=== PATIENT | female | born 1970 | race American Indian/Alaskan Native ===

== ENCOUNTER 2017-03-08 12:32 | Emergency (ER) | payer OTHER ==
[2017-03-08 12:51] VITALS: BMI 29.3
[2017-03-08 12:53] VITALS: TEMP 98.4
--- NOTE | 2017-03-08 13:04 | ED PDOC ---
Arrival/HPI - General Historian: Patient - History of Present Illness Time/Duration: > month Symptom Onset: Gradual Symptom Course: Intermittent Quality: Burning Severity Level: 7 - General Chief Complaint: Abdominal Pain Time Seen by Provider: 03/08/17 13:03 - History of Present Illness Narrative History of Present Illness (Text): 46 F with pmh of Gerd, hiatal hernia, HTN, s/p ventral hernia presents to ED for complaint of abdominal pain. Patient states this pain has been intermittent for past 2 months. She states that she has had similar pain in the past but not sure what is causing it. 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 She states pain is moderate. She describes it as intermittent burning pain in epigastric region without radiation. Food makes it worse sometimes while nothing makes it better. (Ye Sarah) Past Medical History - Provider Review Nursing Documentation Reviewed: Yes - Travel History Have you recently traveled outside [place] w/in the past 3 mons?: No - Infectious Disease Hx of Infectious Diseases: None - Reproductive Menopause: Yes - Cardiac Hx Cardiac Disorders: Yes Hx Hypertension: Yes - Pulmonary Hx Respiratory Disorders: No - Neurological Hx Neurological Disorder: No - HEENT Hx HEENT Disorder: No - Renal Hx Renal Disorder: No - Endocrine/Metabolic Hx Endocrine Disorders: No - Hematological/Oncological Hx Blood Disorders: No - Integumentary Hx Dermatological Disorder: No - Musculoskeletal/Rheumatological Hx Musculoskeletal Disorders: No - Gastrointestinal Hx Gastrointestinal Disorders: Yes Hx Gastroesophageal Reflux: Yes Other/Comment: Hernia - Genitourinary/Gynecological Hx Genitourinary Disorders: No Other/Comment: Ovarian cyst - Psychiatric Hx Psychophysiologic Disorder: No Hx Substance Use: No - Surgical History Other/Comment: Hernia Surgery - Anesthesia Hx Anesthesia: Yes Hx Anesthesia Reactions: No Hx Malignant Hyperthermia: No Family/Social History - Physician Review Nursing Documentation Reviewed: Yes Family/Social History: Unknown Family HX Smoking Status: Former Smoker Hx Alcohol Use: No Hx Substance Use: No Allergies/Home Meds Allergies/Adverse Reactions: Allergies No Known Allergies Allergy (Verified 06/21/16 15:14) Home Medications: Home Meds Medication Instructions Recorded Confirmed Home Med [Home Med] 1 tab PO DAILY 03/08/17 03/08/17 Home Med [Home Med] 1 tab PO DAILY 03/08/17 03/08/17 Review of Systems - Review of Systems Constitutional: absent: Fatigue, Weight Change, Fevers, Night Sweats Eyes: absent: Vision Changes, Photophobia, Eye Pain ENT: absent: Hearing Changes, Tinnitus, TMJ Pain, Rhinorrhea, Sinus Congestion Respiratory: absent: SOB, Cough, Sputum, Wheezing Cardiovascular: absent: Chest Pain, Palpitations, Edema, Syncope Gastrointestinal: Abdominal Pain. absent: Constipation, Diarrhea, Nausea, Vomiting, Appetite Changes, Hematochezia, Hematemesis, Food Intolerance Genitourinary Female: absent: Dysuria, Frequency, Hematuria Musculoskeletal: absent: Arthralgias, Back Pain, Neck Pain, Joint Swelling, Myalgias Skin: absent: Rash, Skin Lesions Neurological: absent: Headache, Dizziness, Focal Weakness Endocrine: absent: Diaphoresis, Polyuria, Polydipsia, Other Hemo/Lymphatic: absent: Adenopathy, Easy Bleeding, Easy Bruising Psychiatric: absent: Anxiety, Depression, Suicidal Ideation Physical Exam Vital Signs Reviewed: Yes Temperature: Afebrile Blood Pressure: Normal Pulse: Regular Respiratory Rate: Normal Appearance: Positive for: Well-Appearing, Non-Toxic, Comfortable Pain Distress: Mild Mental Status: Positive for: Alert and Oriented X 3 - Systems Exam Head: Present: Atraumatic, Normocephalic Pupils: Present: PERRL Extroacular Muscles: Present: EOMI Conjunctiva: Present: Normal Mouth: Present: Moist Mucous Membranes Neck: Present: Normal Range of Motion, Trachea Midline Respiratory/Chest: Present: Clear to Auscultation, Good Air Exchange Cardiovascular: Present: Regular Rate and Rhythm, Normal S1, S2, Peripheal Pulses Present Abdomen: Present: Tenderness (epigastric), Normal Bowel Sounds. No: Distention , Peritoneal Signs, Rebound, Guarding Back: No: CVA Tenderness Upper Extremity: Present: Normal ROM, NORMAL PULSES, Neurovascularly Intact, Capillary Refill < 2s Lower Extremity: Present: NORMAL PULSES, Normal ROM, Neurovascularly Intact, Capillary Refill < 2 s Neurological: Present: GCS=15, CN II-XII Intact, Speech Normal, Motor Func Grossly Intact, Normal Sensory Function Skin: Present: Warm, Dry, Normal Color Lymphatic: No: Cervical Adenopathy, Axillary Adenopathy, Inguinal Adenopathy Psychiatric: Present: Alert, Oriented x 3 Vital Signs Temp Pulse Resp BP Pulse Ox 03/08/17 16:46 80 16 126/72 98 03/08/17 12:53 98.4 F 79 18 121/80 95 Medical Decision Making ED Course and Treatment: CBC, CMP, EKG, AB US Pepcid AB US and labs reviewed all labs and imaging were unremarkable Patient is feeling better. Medically stable for discharge. Abdomen soft, nontender, BS present, no guarding or rebound (Imbrescia,Ye) Patient seen and examined with resident. Came up with treatment and disposition plan with resident. 46yo female with epigastric pain and tenderness to palpation. states she has had this discomfort in the past. states pain is non-exertional and she has no cp /sob/lerma. States pain is worst with food. states she can f/u with GI on dc pt's abd is soft/nt/nd and she is tolerating PO without difficulty (Yusuf Sunshine) - Lab Interpretations Lab Results: 03/08/17 15:30 03/08/17 15:30 Lab Results 03/08/17 15:30: Sodium 136, Potassium 3.5 L, Chloride 100, Carbon Dioxide 26, Anion Gap 14, BUN 14, Creatinine 0.8, Est GFR ( Amer) > 60, Est GFR (Non- Af Amer) > 60, Random Glucose 82, Calcium 8.9, Total Bilirubin 0.3, AST 36, ALT 41, Alkaline Phosphatase 53, Total Protein 7.7, Albumin 4.0, Globulin 3.6, Albumin/Globulin Ratio 1.1 03/08/17 15:30: WBC 5.8 D, RBC 4.26, Hgb 11.8 L, Hct 34.8 L, MCV 81.7, MCH 27.7 , MCHC 33.9, RDW 14.5, Plt Count 225, MPV 9.3, Gran % 51.7, Lymph % (Auto) 40.8 H, [place] % (Auto) 5.4, Eos % (Auto) 1.6, Baso % (Auto) 0.5, Gran # 3.00, Lymph # 2.4, [place] # 0.3, Eos # 0.1, Baso # 0.03 03/08/17 14:00: Urine Color Yellow, Urine Appearance Clear, Urine pH 6.0, Ur Specific [place] 1.020, Urine Protein Negative, Urine Glucose (UA) Negative, Urine Ketones Negative, Urine Blood Negative, Urine Nitrate Negative, Urine Bilirubin Negative, Urine Urobilinogen 0.2, Ur Leukocyte Esterase Negative - RAD Interpretation Radiology Orders: 03/08/17 13:31 ABDOMEN COMPLETE [US] Stat - Medication Orders Current Medication Orders: Discontinued Medications Famotidine (Pepcid) 20 mg IVP STAT STA Stop: 03/08/17 13:32 Last Admin: 03/08/17 15:33 Dose: 20 mg Disposition/Present on Arrival - Present on Arrival Any Indicators Present on Arrival: No History of DVT/PE: No History of Uncontrolled Diabetes: No Urinary Catheter: No History of Decub. Ulcer: No History Surgical Site Infection Following: None - Disposition Have Diagnosis and Disposition been Completed?: Yes Disposition Time: 04:20 Patient Plan: Discharge - Disposition Diagnosis: Abdominal pain Disposition: HOME/ ROUTINE Condition: GOOD Discharge Instructions (ExitCare): Abdominal Pain (ED) Additional Instructions: Thank you for letting us take care of you today. Your provider was Dr. Sarah. You were treated for Abdominal pain. The emergency medical care you received today was directed at your acute symptoms. If you were prescribed any medication, please fill it and take as directed. It may take several days for your symptoms to resolve. Return to the Emergency Department if your symptoms worsen, do not improve, or if you have any other problems. Please contact your doctor or call one of the physicians/clinics you have been referred to that are listed on the Patient Visit Information form that is included in your discharge packet. Bring any paperwork you were given at discharge with you along with any medications you are taking to your follow up visit. Our treatment cannot replace ongoing medical care by a primary care provider (PCP) outside of the emergency department. Thank you for allowing the [facility] team to be part of your care today. If you had an X-Ray or CT scan: A Radiologist will review the ED reading if any change in treatment is needed we will contact you. If you had a blood, urine, or wound culture: It will take several days for the results, if any change in treatment is needed we will contact you. If you had an STI test: It will take 48 hours for the results. Please call after 1 week if you have not heard back. Take Zantac as prescribed Follow up with PMD within 2-3 days Follow up with Gastroenterology Please return to ED if symptoms persist or condition worsens Prescriptions: Ranitidine HCl 150 mg PO BID #60 tab Referrals: Leeanna Jones MD [Primary Care Provider] - Follow up with primary Josh English MD [Staff Provider] - Follow up with primary Ryan Solorzano MD [Medical Doctor] - Follow up with primary Wei Junior DO [Staff Provider] - Follow up with primary
[2017-03-08 14:18] LABS: URINE BILIRUBIN NEGATIVE (NEGATIVE); URINE BLOOD NEGATIVE (NEGATIVE); URINE GLUCOSE (UA) NEGATIVE (NEGATIVE); URINE LEUKOCYTE ESTERASE NEGATIVE Leu/uL (NEGATIVE); URINE NITRATE NEGATIVE (NEGATIVE); URINE PROTEIN NEGATIVE mg/dL (<30 mg/dL); URINE UROBILINOGEN 0.2 E.U./dL (<1 E.U./dL)
[2017-03-08 14:27] LABS: URINE APPEARANCE CLEAR (CLEAR); URINE COLOR YELLOW (YELLOW)
--- NOTE | 2017-03-08 14:50 | US ---
HISTORY: Epigastric pain COMPARISON: None. TECHNIQUE: Grayscale imaging was performed. FINDINGS: LIVER: Measures 17.3 cm. Normal echogenicity of the liver parenchyma. No mass. No intrahepatic bile duct dilatation. GALLBLADDER: Unremarkable. No gallstones. COMMON BILE DUCT: Measures 2.6 mm. No stones. No dilatation. PANCREAS: Unremarkable as visualized. No mass. No ductal dilatation. RIGHT KIDNEY: Measures 9.3cm. Normal echogenicity. No calculus, mass, or hydronephrosis. LEFT KIDNEY: Measures 10.2cm. Normal echogenicity. No calculus, mass, or hydronephrosis. SPLEEN: Normal in size and contour. No mass. AORTA: No aneurysmal dilatation. IVC: Unremarkable. OTHER FINDINGS: None. IMPRESSION: No evidence of cholelithiasis or biliary dilatation.
[2017-03-08 15:41] LABS: BASO # 0.03 K/mm3 (0.0-2.0); BASO % 0.5 % (0.0-3.0); EOS # 0.1 (0.0-0.7); EOS % 1.6 % (1.5-5.0); GRAN % 51.7 % (50.0-68.0); HEMOGLOBIN 11.8 gm/dL (12.0-16.0); LYMPH # 2.4 (1.2-3.4); LYMPH % 40.8 % (22.0-35.0); MEAN CELL VOLUME 81.7 fL (80.0-105.0); MEAN CORPUSCULAR HEMOGLOBIN 27.7 pg (25.0-35.0); MEAN CORPUSCULAR HGB CONC 33.9 g/dl (31.0-37.0); MEAN PLATELET VOLUME 9.3 fl (7.0-11.0); MONO # 0.3 (0.1-0.6); MONO % 5.4 % (1.0-6.0); PLATELET COUNT 225 10^3/uL (120.0-450.0); RBC 4.26 10^6/uL (3.5-6.1); RED CELL DISTRIBUTION WIDTH 14.5 % (11.5-14.5); WHITE BLOOD COUNT 5.8 10^3/ul (4.5-11.0)
[2017-03-08 15:57] LABS: ALB/GLOB RATIO 1.1 (1.1-1.8); ALT/SGPT 41 U/L (7-56); AST/SGOT 36 U/L (15-39); BLOOD UREA NITROGEN 14 mg/dL (7-21); CALCIUM 8.9 mg/dL (8.4-10.5); GFR AFRICAN-AMERICAN > 60; GFR NON-AFRICAN AMERICAN > 60
[2017-03-08 16:51] VITALS: BP 126/72; PULSE 80; RESP 16; O2SAT 98
== END 2017-03-08 16:46 | disposition home or self-care (01) ==
LOC: ED 12:32
DX: R10.9 Unspecified abdominal pain (principal); Z87.891 Personal history of nicotine dependence; I10 Essential (primary) hypertension

== ENCOUNTER 2018-03-06 15:04 | Emergency (ER) | payer MEDICAID, OTHER ==
[2018-03-06 15:04] VITALS: BMI 29.3
--- NOTE | 2018-03-06 15:41 | ED PDOC ---
Arrival/HPI - General Time Seen by Provider: 03/06/18 15:31 Historian: Patient - History of Present Illness Narrative History of Present Illness (Text): 03/06/18 15:37 47 y/o female, pmh including tendonitis, post menopausal, nkda, c/o rt. ankle pain x 2 weeks s/p injured from hitting against the table. Aching pain, aggravated by walking, no calf or thigh pain, no swelling, no fever or chills, no night sweat, no other medical or psychological complaints. Past Medical History - Provider Review Nursing Documentation Reviewed: Yes - Infectious Disease Hx of Infectious Diseases: None - Cardiac Hx Cardiac Disorders: Yes Hx Hypertension: Yes - Pulmonary Hx Respiratory Disorders: No - Neurological Hx Neurological Disorder: No - HEENT Hx HEENT Disorder: No - Renal Hx Renal Disorder: No - Endocrine/Metabolic Hx Endocrine Disorders: No - Hematological/Oncological Hx Blood Disorders: No - Integumentary Hx Dermatological Disorder: No - Musculoskeletal/Rheumatological Hx Musculoskeletal Disorders: No - Gastrointestinal Hx Gastrointestinal Disorders: Yes Hx Gastroesophageal Reflux: Yes Other/Comment: Hernia - Genitourinary/Gynecological Hx Genitourinary Disorders: No Other/Comment: Ovarian cyst - Psychiatric Hx Psychophysiologic Disorder: No Hx Substance Use: No - Surgical History Other/Comment: Hernia Surgery - Anesthesia Hx Anesthesia: Yes Hx Anesthesia Reactions: No Hx Malignant Hyperthermia: No Family/Social History - Physician Review Nursing Documentation Reviewed: Yes Family/Social History: Unknown Family HX Smoking Status: Former Smoker Hx Alcohol Use: No Hx Substance Use: No Allergies/Home Meds Allergies/Adverse Reactions: Allergies No Known Allergies Allergy (Verified 06/21/16 15:14) Home Medications: Home Meds Medication Instructions Recorded Confirmed Home Med [Home Med] 1 tab PO DAILY 03/08/17 03/08/17 Home Med [Home Med] 1 tab PO DAILY 03/08/17 03/08/17 Review of Systems - Review of Systems Constitutional: absent: Fatigue, Fevers Eyes: absent: Vision Changes ENT: absent: Hearing Changes Respiratory: absent: SOB, Cough Cardiovascular: absent: Chest Pain Gastrointestinal: absent: Abdominal Pain, Nausea, Vomiting Musculoskeletal: Arthralgias, Joint Swelling. absent: Back Pain, Neck Pain, Myalgias Skin: absent: Rash, Pruritis Neurological: absent: Headache, Dizziness Psychiatric: absent: Anxiety, Depression, Suicidal Ideation Physical Exam Vital Signs Temp Pulse Resp BP Pulse Ox 03/06/18 16:18 98.3 F 92 H 18 131/80 98 03/06/18 15:04 97.6 F 88 18 141/79 98 - Systems Exam Head: Present: Atraumatic, Normocephalic Pupils: Present: PERRL Extroacular Muscles: Present: EOMI Conjunctiva: Present: Normal Mouth: Present: Moist Mucous Membranes Neck: Present: Normal Range of Motion Respiratory/Chest: Present: Clear to Auscultation, Good Air Exchange. No: Respiratory Distress, Accessory Muscle Use Cardiovascular: Present: Regular Rate and Rhythm, Normal S1, S2. No: Murmurs Abdomen: No: Tenderness, Distention, Peritoneal Signs Back: Present: Normal Inspection Upper Extremity: Present: Normal Inspection. No: Cyanosis, Edema Lower Extremity: Present: Normal Inspection, Other (Rt. ankle: +ttp on the lateral malleolus with mild swelling, negative karen and lopes signs, FROM without limitation, sensation intact, motor 5/5, ). No: Edema Neurological: Present: GCS=15, CN II-XII Intact, Speech Normal, Motor Func Grossly Intact, Gait Normal, Memory Normal Skin: Present: Warm, Dry, Normal Color. No: Rashes Psychiatric: Present: Alert, Oriented x 3, Normal Insight, Normal Concentration Medical Decision Making ED Course and Treatment: 03/06/18 15:47 Differential: fracture vs. dislocation vs. sprain vs. strain -xray -toradol -Observe and reassess 03/06/18 16:57 -xray show no fracture or dislocation -jennifer wrap, cane as patient refused crutches, pt. request stronger pain med prior to leaving as her pain is improved but not completely gone, percocet ordered. -all radiology result discussed with patient and she awared that she would need to follow up with orthopedic within 2 days. -Discharge home with motrin, jennifer wrap, cane, follow up with your own pmd and orthopedic within 2 days, return to the ER for any new or worsening signs or symptoms. - RAD Interpretation Radiology Orders: 03/06/18 16:04 ANKLE RIGHT 3 VIEWS ROUTINE [RAD] Stat Date of service: 03/06/2018 PROCEDURE: Right Ankle Radiographs. HISTORY: rt. ankle injury and pain COMPARISON: None FINDINGS: BONES: Normal. No fracture. JOINTS: Normal. No osteoarthritis. Ankle mortise maintained. Talar dome intact SOFT TISSUES: Normal. OTHER FINDINGS: None. IMPRESSION: No acute findings related to/accounting for the clinical presentation. 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 No Sleep Is patient sleeping during reassessment? No Presence of Pain Presence of Pain Yes IM Administration Charges Document 03/06/18 16:28 EQ (Rec: 03/06/18 16:28 EQ [email or web address] Charges for Administration # of IM Administrations 1 Oxycodone/Acetaminophen (Percocet 5/325 Mg Tab) 1 tab PO STAT STA Stop: 03/06/18 17:00 Last Admin: 03/06/18 17:32 Dose: 1 tab MAR Pain Assessment Document 03/06/18 17:32 EQ (Rec: 03/06/18 17:33 EQ [id number] Pain Reassessment Is this a pain reassessment? No Sleep Is patient sleeping during reassessment? 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 Disposition/Present on Arrival - Present on Arrival Any Indicators Present on Arrival: No History of DVT/PE: No History of Uncontrolled Diabetes: No Urinary Catheter: No History Surgical Site Infection Following: None - Disposition Have Diagnosis and Disposition been Completed?: Yes Diagnosis: Ankle pain Disposition: HOME/ ROUTINE Disposition Time: 15:48 Patient Plan: Discharge Patient Problems: Current Active Problems Problem Status Onset Ankle pain Acute Condition: GOOD Additional Instructions: -Discharge home with motrin, jennifer wrap, cane, follow up with your own pmd and orthopedic within 2 days, return to the ER for any new or worsening signs or symptoms. Prescriptions: Ibuprofen [Motrin Tab] 600 mg PO QID PRN #30 tab PRN Reason: Other Referrals: Leeanna Jones MD [Primary Care Provider] - Follow up with primary Forms: WORK NOTE
[2018-03-06 16:00] VITALS: RESP 18; O2SAT 98
[2018-03-06 16:20] VITALS: TEMP 98.3
[2018-03-06] MEDS ORDERED: Oxycodone/Acetaminophen 5/325 mg Tab PO STA (16:59)
--- NOTE | 2018-03-06 17:34 | RAD ---
Date of service: 03/06/2018 PROCEDURE: Right Ankle Radiographs. HISTORY: rt. ankle injury and pain COMPARISON: None FINDINGS: BONES: Normal. No fracture. JOINTS: Normal. No osteoarthritis. Ankle mortise maintained. Talar dome intact SOFT TISSUES: Normal. OTHER FINDINGS: None. IMPRESSION: No acute findings related to/accounting for the clinical presentation. Concordant results with the preliminary interpretation rendered by the emergency department physician procedure.
[2018-03-06 17:44] VITALS: BP 134/76; PULSE 83
== END 2018-03-06 17:43 | disposition home or self-care (01) ==
LOC: ED 15:04
DX: M25.571 Pain in right ankle and joints of right foot (principal); I10 Essential (primary) hypertension; Z87.891 Personal history of nicotine dependence
CPT/HCPCS: 73610; 96372; 99284; J1885

== ENCOUNTER 2018-11-17 14:50 | Inpatient (IN) | payer MEDICAID ==
[2018-11-17 15:01] VITALS: BMI 25.7
[2018-11-17 15:53] LABS: BASO # 0.02 K/mm3 (0.0-2.0); BASO % 0.1 % (0.0-3.0); EOS % 0.1 % (1.5-5.0); HEMOGLOBIN 12.3 g/dL (12.0-16.0); LYMPH # 1.7 (1.2-3.4); LYMPH % 9.9 % (22.0-35.0); MEAN CELL VOLUME 83.5 fl (80.0-105.0); MEAN CORPUSCULAR HEMOGLOBIN 27.5 pg (25.0-35.0); MEAN CORPUSCULAR HGB CONC 32.9 g/dl (31.0-37.0); MEAN PLATELET VOLUME 9.5 fl (7.0-11.0); MONO # 1.3 (0.1-0.6); MONO % 7.7 % (1.0-6.0); RBC 4.48 10^6/uL (3.5-6.1); WHITE BLOOD COUNT 17.1 10^3/uL (4.5-11.0)
[2018-11-17] MEDS ORDERED: Sodium Chloride 0.9% 1,000 ML IV STA (15:56)
[2018-11-17 15:59] LABS: ALB/GLOB RATIO 0.9 (1.1-1.8); ALBUMIN 3.9 g/dL (3.0-4.8); ALT/SGPT 17 U/L (7-56); AST/SGOT 33 U/L (14-36); BLOOD UREA NITROGEN 11 mg/dL (7-21); CALCIUM 9.3 mg/dL (8.4-10.5); GFR NON-AFRICAN AMERICAN > 60; LIPASE 40 U/L (23-300)
--- NOTE | 2018-11-17 16:02 | ED PDOC ---
Arrival/HPI - General Chief Complaint: Abdominal Pain Time Seen by Provider: 11/17/18 15:00 Historian: Patient - History of Present Illness Narrative History of Present Illness (Text): 11/17/18 15:58 48 year old post-menopausal female, whose past medical history includes tendonitis, presents to the ED for abdominal pain for the past week. Patient reports associated headache, fever, nausea, vomiting and diarrhea. Patient notes a past surgical history of hernia and bladder lift surgeries. Patient denies any chest pain, shortness of breath, dyspnea on exertion, cough, back pain, neck pain, vaginal bleeding, hematuria, dysuria, urinary/bowel changes, or any other complaint. Time/Duration: 1 week Symptom Onset: Gradual Symptom Course: Unchanged Activities at Onset: Light Context: Home Past Medical History - Provider Review Nursing Documentation Reviewed: Yes - Infectious Disease Hx of Infectious Diseases: None - Cardiac Hx Cardiac Disorders: Yes Hx Hypertension: Yes - Pulmonary Hx Respiratory Disorders: No - Neurological Hx Neurological Disorder: No - HEENT Hx HEENT Disorder: No - Renal Hx Renal Disorder: No - Endocrine/Metabolic Hx Endocrine Disorders: No - Hematological/Oncological Hx Blood Disorders: No - Integumentary Hx Dermatological Disorder: No - Musculoskeletal/Rheumatological Hx Musculoskeletal Disorders: No - Gastrointestinal Hx Gastrointestinal Disorders: Yes Hx Gastroesophageal Reflux: Yes Other/Comment: Hernia - Genitourinary/Gynecological Hx Genitourinary Disorders: No Other/Comment: Ovarian cyst - Psychiatric Hx Psychophysiologic Disorder: No Hx Substance Use: No - Surgical History Other/Comment: Hernia Surgery - Anesthesia Hx Anesthesia: Yes Hx Anesthesia Reactions: No Hx Malignant Hyperthermia: No Family/Social History - Physician Review Nursing Documentation Reviewed: Yes Family/Social History: Unknown Family HX Smoking Status: Former Smoker Hx Alcohol Use: No Hx Substance Use: No Allergies/Home Meds Allergies/Adverse Reactions: Allergies No Known Allergies Allergy (Verified 11/17/18 15:01) Home Medications: Home Meds Medication Instructions Recorded Confirmed Home Med 1 tab PO DAILY 03/08/17 03/08/17 Home Med 1 tab PO DAILY 03/08/17 03/08/17 Review of Systems - Physician Review All systems were reviewed & negative as marked: Yes - Review of Systems Constitutional: Fevers Eyes: Normal. absent: Vision Changes ENT: Normal. absent: Hearing Changes, Rhinorrhea Respiratory: absent: SOB, Cough Cardiovascular: absent: Chest Pain Gastrointestinal: Abdominal Pain, Diarrhea, Nausea, Vomiting Genitourinary Female: absent: Dysuria, Hematuria, Vaginal Bleeding Musculoskeletal: absent: Back Pain, Neck Pain Skin: absent: Rash Neurological: Headache Endocrine: absent: Diaphoresis, Polyuria Hemo/Lymphatic: absent: Adenopathy, Easy Bleeding Psychiatric: absent: Anxiety, Depression Physical Exam Vital Signs Reviewed: Yes Vital Signs Temp Pulse Resp BP Pulse Ox 11/17/18 15:07 98.5 F 96 H 18 97/50 L 95 Temperature: Afebrile Blood Pressure: Normal Pulse: Regular Respiratory Rate: Normal Appearance: Positive for: Well-Appearing, Non-Toxic, Comfortable Mental Status: Positive for: Alert and Oriented X 3 - Systems Exam Head: Present: Atraumatic, Normocephalic Pupils: Present: PERRL Extroacular Muscles: Present: EOMI Conjunctiva: Present: Normal Respiratory/Chest: Present: Clear to Auscultation, Good Air Exchange. No: Respiratory Distress, Accessory Muscle Use Abdomen: Present: Tenderness (diffuse abdominal tenderness), Normal Bowel Sounds. No: Rebound, Guarding (no rigidity), Mass/Organomegaly (no palpable organomegaly) Back: No: CVA Tenderness Neurological: Present: Speech Normal Skin: Present: Warm, Dry, Normal Color. No: Rashes Psychiatric: Present: Alert, Oriented x 3, Normal Insight, Normal Concentration Medical Decision Making ED Course and Treatment: 11/17/18 16:07 Impression: 48 year old female who presents to the ED for abdominal pain. Differential Diagnosis included but are not limited to: --Obstruction --Strangulated hernia --Colitis Plan: -- Labs -- Pepcid -- Toradol -- Reglan -- IV Fluids -- Urinalysis --Blood Culture --Ciprofloxacin --Flagyl -- Reassess and disposition Prior Visits: Notes and results from previous visits were reviewed. Progress Notes: 11/17/18 17:56 Labs reviewed with leukocytosis of 17 with shift and hypokalemia to 3.0. CT a/p pending. 11/17/18 18:06 Endorsed clinical case to Dr. Solorzano([facility]) who requests update on CT a/p findings once resulted. 11/17/18 18:28 CT a/p reveals left sided pyelonephritis extending towards the colon. Called Dr. Rashad and updated her on imaging results. She accepts the patient onto her service. PROCEDURE: CT Abdomen and Pelvis with contrast Dictator : Bob Reis MD Report Date : 11/17/2018 17:49:19 IMPRESSION: Inflammatory changes likely originating from the left kidney (focal pyelonephritis). Inflammatory changes extend to the adjacent descending colon. - Lab Interpretations Lab Results: 11/17/18 15:43 11/17/18 15:43 Lab Results 11/17/18 16:50: Urine Color Yellow, Urine Appearance Slight-cloudy, Urine pH 6.0, Ur Specific [place] <= 1.005, Urine Protein Negative, Urine Glucose (UA) Negative, Urine Ketones Negative, Urine Blood Negative, Urine Nitrate Negative, Urine Bilirubin Negative, Urine Urobilinogen 0.2, Ur Leukocyte Esterase Large H, Urine RBC TEST NOT PERFORMED, Urine WBC 10 - 15 H, Ur Epithelial Cells Many H 11/17/18 15:43: Sodium 138, Potassium 3.0 L, Chloride 97 L, Carbon Dioxide 28, Anion Gap 16, BUN 11, Creatinine 0.9, Est GFR ( Amer) > 60, Est GFR (Non- Af Amer) > 60, Random Glucose 98, Calcium 9.3, Magnesium 1.9, Total Bilirubin 0.5, AST 33, ALT 17, Alkaline Phosphatase 55, Troponin I < 0.01, Total Protein 8.2, Albumin 3.9, Globulin 4.3, Albumin/Globulin Ratio 0.9 L, Lipase 40 11/17/18 15:43: PT 13.1 H, INR 1.18, APTT 31.2 11/17/18 15:43: WBC 17.1 H, RBC 4.48, Hgb 12.3, Hct 37.4, MCV 83.5, MCH 27.5, MCHC 32.9, RDW 14.0, Plt Count 296, MPV 9.5, Neut % (Auto) 82.2 H, Lymph % (Auto) 9.9 L, [place] % (Auto) 7.7 H, Eos % (Auto) 0.1 L, Baso % (Auto) 0.1, Lymph # (Auto) 1.7, [place] # (Auto) 1.3 H, Eos # (Auto) 0.0, Baso # (Auto) 0.02, Absolute Neuts (auto) 14.03 H I have reviewed the lab results: Yes - Medication Orders Current Medication Orders: Famotidine (Pepcid) 20 mg IVP STAT STA Stop: 11/17/18 15:57 Sodium Chloride (Sodium Chloride 0.9%) 1,000 mls @ 999 mls/hr IV .Q1H1M STA Stop: 11/17/18 16:56 Metoclopramide HCl (Reglan) 10 mg IVP STAT STA Stop: 11/17/18 15:57 - Scribe Statement The provider has reviewed the documentation as recorded by the Katie Mckenzie Provider Scribe Attestation: All medical record entries made by the Scribe were at my direction and personally dictated by me. I have reviewed the chart and agree that the record accurately reflects my personal performance of the history, physical exam, medical decision making, and the department course for this patient. I have also personally directed, reviewed, and agree with the discharge instructions and disposition. Disposition/Present on Arrival - Present on Arrival Any Indicators Present on Arrival: No History of DVT/PE: No History of Uncontrolled Diabetes: No Urinary Catheter: No History of Decub. Ulcer: No History Surgical Site Infection Following: None - Disposition Have Diagnosis and Disposition been Completed?: No Diagnosis: Pyelonephritis Disposition: HOSPITALIZED Disposition Time: 18:30 Patient Plan: Admission Patient Problems: Current Active Problems Problem Status Onset Pyelonephritis Acute Condition: GUARDED Referrals: Leeanna Jones MD [Primary Care Provider] - Follow up with primary Forms: [employer] (Yoruba)
[2018-11-17 16:06] LABS: INR 1.18; PARTIAL THROMBOPLASTIN TIME 31.2 Seconds (26.9-38.3); PROTHROMBIN TIME 13.1 SECONDS (9.4-12.5)
[2018-11-17 16:09] LABS: TROPONIN I < 0.01 ng/mL
[2018-11-17] MEDS ORDERED: metroNIDAZOLE IV 500 mg/100 ml 500 MG/100 ML BAG IVPB STA (16:13)
[2018-11-17] MEDS ORDERED: Ciprofloxacin 400mg/200ml D5W 400 MG/200 ML BAG IVPB STA (16:13)
[2018-11-17] MEDS ORDERED: Iohexol 350 MG/100 ML VIAL ONE (17:15)
[2018-11-17 17:24] LABS: URINE BILIRUBIN NEGATIVE (NEGATIVE); URINE BLOOD NEGATIVE (NEGATIVE); URINE GLUCOSE (UA) NEGATIVE (NEGATIVE); URINE LEUKOCYTE ESTERASE LARGE Leu/uL (NEGATIVE); URINE PROTEIN NEGATIVE mg/dL (<30 mg/dL); URINE UROBILINOGEN 0.2 E.U./dL (<1 E.U./dL)
[2018-11-17 17:29] LABS: URINE APPEARANCE SLIGHT-CLOUDY (CLEAR); URINE COLOR YELLOW (YELLOW)
[2018-11-17 17:43] LABS: URINE EPITHELIAL CELLS MANY /hpf (0-5)
[2018-11-17] MEDS ORDERED: Potassium Chloride 40 mEq/30 ml LIQ UD PO STA (17:56)
--- NOTE | 2018-11-17 18:15 | CT ---
Date of service: 11/17/2018 PROCEDURE: CT Abdomen and Pelvis with contrast HISTORY: h/o mesh w/ and bladder elevation COMPARISON: 06/21/2016. CT abdomen and pelvis. 03/08/2017 abdominal ultrasound TECHNIQUE: Intravenous contrast dose: 100 cc Omnipaque 300. Radiation dose: Total exam DLP = <inf_radiation_dlp> mGy-cm. This CT exam was performed using one or more of the following dose reduction techniques: Automated exposure control, adjustment of the mA and/or kV according to patient size, and/or use of iterative reconstruction technique. FINDINGS: LOWER THORAX: Unremarkable. LIVER: Unremarkable. No gross lesion or ductal dilatation. GALLBLADDER AND BILE DUCTS: Unremarkable. PANCREAS: Unremarkable. No gross lesion or ductal dilatation. SPLEEN: Unremarkable. ADRENALS: Unremarkable. No mass. KIDNEYS AND URETERS: Left kidney: Abnormal contrast enhancement mid upper pole region. This is a new finding compared to the prior study. This does not appear to represent a mass per se. Likely represents focal pyelonephritis. Inflammatory changes extend to a short segment of the adjacent descending colon. VASCULATURE: Unremarkable. No aortic aneurysm. No atherosclerotic calcification or mural plaque present. BOWEL: Inflammatory changes likely secondary to adjacent pyelonephritis noted in the proximal descending colon. APPENDIX: No abnormalities to suggest acute appendicitis. No right lower quadrant inflammatory processes identified. PERITONEUM: Unremarkable. No free fluid. No free air. LYMPH NODES: Unremarkable. No enlarged lymph nodes. BLADDER: Unremarkable. REPRODUCTIVE: Unremarkable. BONES: No acute fracture. OTHER FINDINGS: None. IMPRESSION: Inflammatory changes likely originating from the left kidney (focal pyelonephritis). Inflammatory changes extend to the adjacent descending colon.
--- NOTE | 2018-11-17 19:27 | CP.PCM.HP ---
<Chad Mccord - Last Filed: 11/17/18 19:59> History of Present Illness - History of Present Illness History of Present Illness: Chad Mccord, PGY1 H&P for Dr. Askew cc: "abdominal pain x1 week" Patient is a 48 year old post-menopausal female, whose past medical history includes GERD, hiatal hernia (with mesh placement), HTN, arthritis, ovarian cyst (with removal) who presented to the ED for x1 week duration. Patient says the pain is left sided. She denies any nausea, vomiting, diarrhea. She describes the pain as sharp and with no radiation. She denies dysuria at this time. However, she endorses urinary frequency and urgency. She had a subjective fever last night. Patient does not notice any blood in her stool or bowel. Patient denies sob, cp, headache, bowel/bladder changes. A full 12 point ROS was conducted and unremarkable except as stated above. PMD: Dr. Currie ([place]) Pain Management: Dr. Pérez Pharm: [facility] ([address] [facility]) PMHx: GERD, hiatal hernia (with mesh placement), HTN, arthritis, ovarian cyst (with removal) PSHx: hernia repair with mesh, bladder lift surgery, ovarian cyst removal Meds: see MAR Allergies: NKDA SocialHx: denies drug use, EtOH use, and tobacco use. FamHx: non-contributory Present on Admission - Present on Admission Any Indicators Present on Admission: No Review of Systems - Review of Systems All systems: reviewed and no additional remarkable complaints except (as per HPI) Past Patient History - Infectious Disease Hx of Infectious Diseases: None - Past Social History Smoking Status: Former Smoker - CARDIAC Hx Cardiac Disorders: Yes Hx Hypertension: Yes - PULMONARY Hx Respiratory Disorders: No - NEUROLOGICAL Hx Neurological Disorder: No - HEENT Hx HEENT Problems: No - RENAL Hx Chronic Kidney Disease: No - ENDOCRINE/METABOLIC Hx Endocrine Disorders: No - HEMATOLOGICAL/ONCOLOGICAL Hx Blood Disorders: No - INTEGUMENTARY Hx Dermatological Problems: No - MUSCULOSKELETAL/RHEUMATOLOGICAL Hx Musculoskeletal Disorders: No - GASTROINTESTINAL Hx Gastrointestinal Disorders: Yes Hx Gastroesophageal Reflux: Yes Other/Comment: Hernia - GENITOURINARY/GYNECOLOGICAL Hx Genitourinary Disorders: No Other/Comment: Ovarian cyst - PSYCHIATRIC Hx Psychophysiologic Disorder: No Hx Substance Use: No - SURGICAL HISTORY Other/Comment: Hernia Surgery - ANESTHESIA Hx Anesthesia: Yes Hx Anesthesia Reactions: No Hx Malignant Hyperthermia: No Meds Allergies/Adverse Reactions: Allergies Allergy/AdvReac Type Severity Reaction Status Date / Time No Known Allergies Allergy Verified 11/17/18 15:01 Physical Exam - Constitutional Appears: No Acute Distress - Head Exam Head Exam: ATRAUMATIC, NORMAL INSPECTION, NORMOCEPHALIC - Eye Exam Eye Exam: Normal appearance - ENT Exam ENT Exam: Mucous Membranes Moist - Respiratory Exam Respiratory Exam: Clear to Auscultation Bilateral. absent: Decreased Breath Sounds, Rales, Rhonchi, Wheezes - Cardiovascular Exam Cardiovascular Exam: RRR, +S1, +S2 - GI/Abdominal Exam GI & Abdominal Exam: Normal Bowel Sounds, Soft, Tenderness (Left sided abdominal tenderness. ) - Extremities Exam Additional comments: No swelling of ankles. No signs of infection. Motor strength 5/5 and all sensation intact. - Back Exam Back exam: CVA tenderness (L) - Neurological Exam Neurological exam: Alert, CN II-XII Intact, Oriented x3 - Psychiatric Exam Psychiatric exam: Normal Affect, Normal Mood - Skin Skin Exam: Dry, Intact, Normal Color, Warm Results - Vital Signs Recent Vital Signs: Last Vital Signs Temp 98.5 F 11/17/18 18:41 Pulse 83 11/17/18 18:41 Resp 18 11/17/18 18:41 BP 138/85 11/17/18 18:41 Pulse Ox 97 11/17/18 18:41 - Labs Result Diagrams: 11/17/18 15:43 11/17/18 15:43 Labs: Laboratory Results - last 24 hr 11/17/18 11/17/18 11/17/18 15:43 15:43 15:43 WBC 17.1 H RBC 4.48 Hgb 12.3 Hct 37.4 MCV 83.5 MCH 27.5 MCHC 32.9 RDW 14.0 Plt Count 296 MPV 9.5 Neut % (Auto) 82.2 H Lymph % (Auto) 9.9 L [place] % (Auto) 7.7 H Eos % (Auto) 0.1 L Baso % (Auto) 0.1 Lymph # (Auto) 1.7 Ross # (Auto) 1.3 H Eos # (Auto) 0.0 Baso # (Auto) 0.02 Absolute Neuts (auto) 14.03 H PT 13.1 H INR 1.18 APTT 31.2 Sodium 138 Potassium 3.0 L Chloride 97 L Carbon Dioxide 28 Anion Gap 16 BUN 11 Creatinine 0.9 Est GFR ( Amer) > 60 Est GFR (Non-Af Amer) > 60 Random Glucose 98 Calcium 9.3 Magnesium 1.9 Total Bilirubin 0.5 AST 33 ALT 17 Alkaline Phosphatase 55 Troponin I < 0.01 Total Protein 8.2 Albumin 3.9 Globulin 4.3 Albumin/Globulin Ratio 0.9 L Lipase 40 Urine Color Urine Appearance Urine pH Ur Specific [place] Urine Protein Urine Glucose (UA) Urine Ketones Urine Blood Urine Nitrate Urine Bilirubin Urine Urobilinogen Ur Leukocyte Esterase Urine RBC Urine WBC Ur Epithelial Cells 11/17/18 16:50 WBC RBC Hgb Hct MCV MCH MCHC RDW Plt Count MPV Neut % (Auto) Lymph % (Auto) [place] % (Auto) Eos % (Auto) Baso % (Auto) Lymph # (Auto) [place] # (Auto) Eos # (Auto) Baso # (Auto) Absolute Neuts (auto) PT INR APTT Sodium Potassium Chloride Carbon Dioxide Anion Gap BUN Creatinine Est GFR ( Amer) Est GFR (Non-Af Amer) Random Glucose Calcium Magnesium Total Bilirubin AST ALT Alkaline Phosphatase Troponin I Total Protein Albumin Globulin Albumin/Globulin Ratio Lipase Urine Color Yellow Urine Appearance Slight-cloudy Urine pH 6.0 Ur Specific [place] <= 1.005 Urine Protein Negative Urine Glucose (UA) Negative Urine Ketones Negative Urine Blood Negative Urine Nitrate Negative Urine Bilirubin Negative Urine Urobilinogen 0.2 Ur Leukocyte Esterase Large H Urine RBC TEST NOT PERFORMED Urine WBC 10 - 15 H Ur Epithelial Cells Many H Assessment & Plan - Assessment and Plan (Free Text) Assessment: Patient is a 48 year old post-menopausal female, whose past medical history includes GERD, hiatal hernia (with mesh placement), HTN, arthritis, ovarian cyst (with removal) who presented to the ED for x1 week duration. Patient admitted f or left sided pyelonephritis. Plan: Left Pyelonephritis - wbc 17.1 with left sided shift (neutrophils elevated) - ceftriaxone 1g IVPB daily - afebrile at this time - tylenol prn for fevers - IVF NS @ 125 cc/hr - HHD - UA + for UTI but contaminated - f/u UCx - tramadol 50mg q8 prn (patient takes tramadol home med -- confirm with pharmacy in the morning) - CT A/P: inflammatory changes from left kidney (focal pyelonephritis) - Urology is on consult (Dr. Butler) Hypokalemia 2/2 GI Losses - replete K as needed - K 3.0 on admission - zofran prn for nausea/vomiting GERD - ptx Chronic R-Ankle Pain 2/2 Arthritis - TIARA bandage ppx: - ptx - scd Dispo: Monitor patient on med/surg Case was discussed and reviewed with Attending Physician, Dr. Askew. <Marisol Askew - Last Filed: 11/18/18 06:28> Results - Vital Signs Recent Vital Signs: Last Vital Signs Temp 102.4 F H 11/18/18 05:05 Pulse 97 H 11/17/18 21:05 Resp 20 11/18/18 05:35 BP 109/66 11/17/18 21:05 Pulse Ox 98 11/17/18 21:05 - Labs Result Diagrams: 11/17/18 15:43 11/17/18 15:43 Labs: Laboratory Results - last 24 hr 11/17/18 11/17/18 11/17/18 15:43 15:43 15:43 WBC 17.1 H RBC 4.48 Hgb 12.3 Hct 37.4 MCV 83.5 MCH 27.5 MCHC 32.9 RDW 14.0 Plt Count 296 MPV 9.5 Neut % (Auto) 82.2 H Lymph % (Auto) 9.9 L [place] % (Auto) 7.7 H Eos % (Auto) 0.1 L Baso % (Auto) 0.1 Lymph # (Auto) 1.7 Ross # (Auto) 1.3 H Eos # (Auto) 0.0 Baso # (Auto) 0.02 Absolute Neuts (auto) 14.03 H PT 13.1 H INR 1.18 APTT 31.2 Sodium 138 Potassium 3.0 L Chloride 97 L Carbon Dioxide 28 Anion Gap 16 BUN 11 Creatinine 0.9 Est GFR ( Amer) > 60 Est GFR (Non-Af Amer) > 60 Random Glucose 98 Calcium 9.3 Magnesium 1.9 Total Bilirubin 0.5 AST 33 ALT 17 Alkaline Phosphatase 55 Troponin I < 0.01 Total Protein 8.2 Albumin 3.9 Globulin 4.3 Albumin/Globulin Ratio 0.9 L Lipase 40 Urine Color Urine Appearance Urine pH Ur Specific [place] Urine Protein Urine Glucose (UA) Urine Ketones Urine Blood Urine Nitrate Urine Bilirubin Urine Urobilinogen Ur Leukocyte Esterase Urine RBC Urine WBC Ur Epithelial Cells Urine Opiates Screen Urine Methadone Screen Ur Barbiturates Screen Ur Phencyclidine Scrn Ur Amphetamines Screen U Benzodiazepines Scrn U Oth Cocaine Metabols U Cannabinoids Screen 11/17/18 11/17/18 16:50 20:05 WBC RBC Hgb Hct MCV MCH MCHC RDW Plt Count MPV Neut % (Auto) Lymph % (Auto) [place] % (Auto) Eos % (Auto) Baso % (Auto) Lymph # (Auto) [place] # (Auto) Eos # (Auto) Baso # (Auto) Absolute Neuts (auto) PT INR APTT Sodium Potassium Chloride Carbon Dioxide Anion Gap BUN Creatinine Est GFR ( Amer) Est GFR (Non-Af Amer) Random Glucose Calcium Magnesium Total Bilirubin AST ALT Alkaline Phosphatase Troponin I Total Protein Albumin Globulin Albumin/Globulin Ratio Lipase Urine Color Yellow Urine Appearance Slight-cloudy Urine pH 6.0 Ur Specific [place] <= 1.005 Urine Protein Negative Urine Glucose (UA) Negative Urine Ketones Negative Urine Blood Negative Urine Nitrate Negative Urine Bilirubin Negative Urine Urobilinogen 0.2 Ur Leukocyte Esterase Large H Urine RBC TEST NOT PERFORMED Urine WBC 10 - 15 H Ur Epithelial Cells Many H Urine Opiates Screen Negative Urine Methadone Screen Negative Ur Barbiturates Screen Negative Ur Phencyclidine Scrn Negative Ur Amphetamines Screen Negative U Benzodiazepines Scrn Negative U Oth Cocaine Metabols Positive H U Cannabinoids Screen Negative Attending/Attestation - Attestation I have personally seen and examined this patient.: Yes I have fully participated in the care of the patient.: Yes I have reviewed all pertinent clinical information: Yes Notes (Text): 11/18/18 06:27 Seen and examined. Discussed with resident. A&P as above.
[2018-11-17] MEDS ORDERED: Potassium Chloride 20 mEq ER Tab PO STA (19:53)
[2018-11-17] MEDS: Sodium Chloride 0.9% 1,000 ML IV SCH (20:10)
[2018-11-17 20:28] LABS: BARBITURATES, UR NEGATIVE (NEGATIVE); OPIATES, UR NEGATIVE (NEGATIVE)
[2018-11-17 20:34] LABS: BENZODIAZEPINES, UR NEGATIVE (NEGATIVE); PHENCYCLIDINE, UR NEGATIVE (NEGATIVE)
[2018-11-18] MEDS: Sodium Chloride 0.9% 1,000 ML IV SCH ×2 (05:06→12:28)
[2018-11-18] MEDS ORDERED: Pantoprazole 40 mg EC Tab PO SCH (06:00)
[2018-11-18] MEDS ORDERED: Potassium Chloride 20 mEq ER Tab PO STA (07:26)
[2018-11-18 07:34] LABS: HEMOGLOBIN 10.7 g/dL (12.0-16.0); MEAN CORPUSCULAR HEMOGLOBIN 27.1 pg (25.0-35.0); MEAN CORPUSCULAR HGB CONC 32.6 g/dl (31.0-37.0); MEAN PLATELET VOLUME 9.7 fl (7.0-11.0); RBC 3.95 10^6/uL (3.5-6.1); RED CELL DISTRIBUTION WIDTH 13.8 % (11.5-14.5); WHITE BLOOD COUNT 16.3 10^3/uL (4.5-11.0)
[2018-11-18 07:59] LABS: ALBUMIN 3.5 g/dL (3.0-4.8); ALT/SGPT 16 U/L (7-56); AST/SGOT 21 U/L (14-36); BLOOD UREA NITROGEN 9 mg/dL (7-21); CALCIUM 8.2 mg/dL (8.4-10.5); GFR NON-AFRICAN AMERICAN > 60
[2018-11-18] MEDS ORDERED: Potassium Chl 10 mEq in D5-1/2 1,000 ML IV SCH (09:00)
[2018-11-18] MEDS: Potassium & Sodium Phosphate PO SCH ×3 (09:32→17:55)
[2018-11-18] MEDS: cefTRIAXone 1 gm 1 GM/100 ML BAG IVPB SCH (09:32)
--- NOTE | 2018-11-18 11:17 | CP.PCM.PN ---
<Jose Hanna - Last Filed: 11/18/18 11:14> Subjective - Date & Time of Evaluation Date of Evaluation: 11/18/18 Time of Evaluation: 11:14 - Subjective Subjective: Jose Hanna, PGY-1, Internal Medicine Progress Note for Dr. Lombardi Patient seen and evaluated at bedside. Patient had no acute overnight events. Patient reports abdominal pain for one week prior to presentation. Patient denies dysuria, hematuria. Patient had nausea and vomiting which ceased 3 days ago. Patient continues to be febrile at 102.4. Patient denies cough, shortness of breath, flank pain. 12-point ROS was unremarkable except for what was mentioned above. Objective - Vital Signs/Intake and Output Vital Signs (last 24 hours): Temp Pulse Resp BP Pulse Ox 102.4 F H 97 H 20 109/66 98 11/18/18 05:05 11/17/18 21:05 11/18/18 05:35 11/17/18 21:05 11/17/18 21:05 Intake and Output: 11/18/18 11/18/18 06:59 18:59 Intake Total 360 Balance 360 - Medications Medications: Current Medications Acetaminophen (Tylenol 325mg Tab) 650 mg PO Q6H PRN PRN Reason: Fever >100.4 F Last Admin: 11/18/18 05:05 Dose: 650 mg Sodium Chloride (Sodium Chloride 0.9%) 1,000 mls @ 125 mls/hr IV .Q8H EMILY Last Admin: 11/18/18 05:06 Dose: 125 mls/hr Ceftriaxone Sodium (Rocephin 1 Gram Ivpb) 1 gm in 100 mls @ 100 mls/hr IVPB DAILY EMILY; Protocol Last Admin: 11/18/18 09:32 Dose: 100 mls/hr Potassium Chloride (Potassium Chloride 10 Meq/100 Ml) 10 meq in 100 mls @ 100 mls/hr IVPB Q2H EMILY Stop: 11/18/18 12:14 Last Admin: 11/18/18 09:32 Dose: 100 mls/hr Ondansetron HCl (Zofran Inj) 4 mg IVP Q4H PRN PRN Reason: Nausea/Vomiting Pantoprazole Sodium (Protonix Ec Tab) 40 mg PO 0600 EMILY Last Admin: 11/18/18 06:54 Dose: Not Given Potassium Chloride (K-Dur 20 Meq Er Tab) 20 meq PO ONCE ONE Stop: 11/18/18 11:31 Potassium Phos/Sodium Phos (Neutra-Phos) 1 pkt PO TID EMILY Stop: 11/18/18 18:01 Last Admin: 11/18/18 09:32 Dose: 1 pkt Tramadol HCl (Ultram) 50 mg PO TID PRN PRN Reason: Pain, severe (8-10) Last Admin: 11/18/18 09:31 Dose: 50 mg - Labs Labs: 11/18/18 06:10 11/18/18 06:10 PT 13.1 SECONDS (9.4-12.5) H 11/17/18 15:43 INR 1.18 11/17/18 15:43 APTT 31.2 Seconds (26.9-38.3) 11/17/18 15:43 - Constitutional Appears: Well, Non-toxic, No Acute Distress - Head Exam Head Exam: ATRAUMATIC, NORMAL INSPECTION, NORMOCEPHALIC - Eye Exam Eye Exam: EOMI, PERRL - ENT Exam ENT Exam: Mucous Membranes Moist - Respiratory Exam Respiratory Exam: Clear to Ausculation Bilateral, NORMAL BREATHING PATTERN. absent: Rales, Rhonchi, Wheezes - Cardiovascular Exam Cardiovascular Exam: REGULAR RHYTHM, RRR, +S1, +S2 - GI/Abdominal Exam GI & Abdominal Exam: Soft, Normal Bowel Sounds. absent: Tenderness - Extremities Exam Extremities Exam: Full ROM, Normal Capillary Refill, Normal Inspection. absent: Tenderness - Neurological Exam Neurological Exam: Alert, Awake, CN II-XII Intact, Oriented x3 - Skin Skin Exam: Dry, Intact, Normal Color Assessment and Plan - Assessment and Plan (Free Text) Assessment: 48 year old female with past medical history of GERD, hiatal hernia with mesh placement, hypertension, arthritis presented with abdominal pain for 1 week. Patient was admitted for left sided pyelonephritis. Plan: Left sided pyelonephritis -CTAP 4/5: inflammatory changes of left kidney (focal pyelonephritis) -UA 4/5: large LE, many epithelial cells, 10-15 WBC, negative nitrate. Likely contaminated sample -Febrile at this time -Leukocytosis mildly improved today -Patient fufills SIRS criteria -Continue with IV NS at 125 cc/hr -Ceftriaxone 1 gm IV daily day 2 -Tylenol PRN for fever>100.4 -Continue with tramadol Q8PRN -Urology, Dr. Butler, consulted Hypokalemia 2/2 to likely malnutrition -Replete as necessary Hypophosphatemia 2/2 to likely malnutrition -Replete as necessary with neutraphos Chronic right ankle pain 2/2 to arthritis -Continue with TIARA bandage Hypertension -Normotensive at this time -Will continue to evaluate GERD -Continue with protonix Cocaine abuse -UDS positive for cocaine -Educated patient regarding dangers of cocaine use -Will evaluate for withdrawal symptoms. -Continue with tramadol Q8PRN GI prophylaxis: protonix 40 mg daily DVT prophylaxis: SCD Patient plan discussed with Dr. Lombardi. <Hermann Lombardi - Last Filed: 11/18/18 11:43> Objective - Vital Signs/Intake and Output Vital Signs (last 24 hours): Temp Pulse Resp BP Pulse Ox 102.4 F H 97 H 20 109/66 98 11/18/18 05:05 11/17/18 21:05 11/18/18 05:35 11/17/18 21:05 11/17/18 21:05 Intake and Output: 11/18/18 11/18/18 06:59 18:59 Intake Total 360 Balance 360 - Medications Medications: Current Medications Acetaminophen (Tylenol 325mg Tab) 650 mg PO Q6H PRN PRN Reason: Fever >100.4 F Last Admin: 11/18/18 05:05 Dose: 650 mg Sodium Chloride (Sodium Chloride 0.9%) 1,000 mls @ 125 mls/hr IV .Q8H EMILY Last Admin: 11/18/18 05:06 Dose: 125 mls/hr Ceftriaxone Sodium (Rocephin 1 Gram Ivpb) 1 gm in 100 mls @ 100 mls/hr IVPB DAILY EMILY; Protocol Last Admin: 11/18/18 09:32 Dose: 100 mls/hr Potassium Chloride (Potassium Chloride 10 Meq/100 Ml) 10 meq in 100 mls @ 100 mls/hr IVPB Q2H EMILY Stop: 11/18/18 12:14 Last Admin: 11/18/18 09:32 Dose: 100 mls/hr Ondansetron HCl (Zofran Inj) 4 mg IVP Q4H PRN PRN Reason: Nausea/Vomiting Pantoprazole Sodium (Protonix Ec Tab) 40 mg PO 0600 EMILY Last Admin: 11/18/18 06:54 Dose: Not Given Potassium Chloride (K-Dur 20 Meq Er Tab) 20 meq PO ONCE ONE Stop: 11/18/18 11:31 Potassium Phos/Sodium Phos (Neutra-Phos) 1 pkt PO TID EMILY Stop: 11/18/18 18:01 Last Admin: 11/18/18 09:32 Dose: 1 pkt Tramadol HCl (Ultram) 50 mg PO TID PRN PRN Reason: Pain, severe (8-10) Last Admin: 11/18/18 09:31 Dose: 50 mg - Labs Labs: 11/18/18 06:10 11/18/18 06:10 PT 13.1 SECONDS (9.4-12.5) H 11/17/18 15:43 INR 1.18 11/17/18 15:43 APTT 31.2 Seconds (26.9-38.3) 11/17/18 15:43 Attending/Attestation - Attestation I have personally seen and examined this patient.: Yes I have fully participated in the care of the patient.: Yes I have reviewed all pertinent clinical information, including history, physical exam and plan: Yes Notes (Text): 11/18/18 11:40 Medical record note made by the resident after discussion with my direction and input after the patient was personally seen and examined by me. I have reviewed the chart and agree that the record accurately reflects by personal performance of the history, physical exam, data review, and medical decision-making, in the course for the patient. I have also personally directed the plan of care. 48 year old F with PMH of drug abuse, PUD with Left Pyelonephritis, Patient is Febrile, will continue IV Ceftriaxone, we will follow up blood and urine cultures. Hypokalemia and Hypophostemia, getting replacement, will monitor. Issue of drug abuse was discussed with patient. Management plan was discussed in detail with patient. Education was provided.
[2018-11-18] MEDS ORDERED: Potassium Chloride 20 mEq ER Tab PO ONE (11:30)
[2018-11-18 14:21] LABS: BLOOD UREA NITROGEN 7 mg/dL (7-21); CALCIUM 8.2 mg/dL (8.4-10.5); GFR NON-AFRICAN AMERICAN > 60
[2018-11-19] MEDS: Sodium Chloride 0.9% 1,000 ML IV SCH ×2 (00:48→05:53)
[2018-11-19 06:42] VITALS: PULSE 81; RESP 18; O2SAT 97
[2018-11-19 07:51] LABS: HEMOGLOBIN 10.9 g/dL (12.0-16.0); MEAN CELL VOLUME 83.3 fl (80.0-105.0); MEAN CORPUSCULAR HEMOGLOBIN 27.3 pg (25.0-35.0); MEAN CORPUSCULAR HGB CONC 32.7 g/dl (31.0-37.0); MEAN PLATELET VOLUME 9.4 fl (7.0-11.0); RED CELL DISTRIBUTION WIDTH 14.2 % (11.5-14.5); WHITE BLOOD COUNT 14.9 10^3/uL (4.5-11.0)
[2018-11-19 08:06] VITALS: BP 112/67; TEMP 99.4
[2018-11-19 08:38] LABS: ALBUMIN 3.3 g/dL (3.0-4.8); ALT/SGPT 17 U/L (7-56); AST/SGOT 18 U/L (14-36); BLOOD UREA NITROGEN 4 mg/dL (7-21); CALCIUM 8.6 mg/dL (8.4-10.5); GFR NON-AFRICAN AMERICAN > 60
[2018-11-19] MEDS: cefTRIAXone 1 gm 1 GM/100 ML BAG IVPB SCH (09:05)
[2018-11-19 09:42] LABS: URINE BILIRUBIN NEGATIVE (NEGATIVE); URINE BLOOD NEGATIVE (NEGATIVE); URINE GLUCOSE (UA) 250 mg/dL (NEGATIVE); URINE LEUKOCYTE ESTERASE NEGATIVE Leu/uL (NEGATIVE); URINE PROTEIN NEGATIVE mg/dL (<30 mg/dL)
[2018-11-19 09:56] LABS: URINE APPEARANCE CLEAR (CLEAR); URINE COLOR YELLOW (YELLOW)
--- NOTE | 2018-11-19 13:24 | CP.PCM.DIS ---
<OrlandobusterJose lane - Last Filed: 11/19/18 13:11> Provider - Provider Date of Admission: 11/17/18 18:24 Attending physician: Brittani Banks MD Primary care physician: Leeanna Jones MD Consults: 11/18/18 06:00 Physician Consult ROUTINE AM Comment: Consulting Provider: David Butler Consulting Physician: David Butler Reason for Consult: pyelonephritis Time Spent in preparation of Discharge (in minutes): 60 Diagnosis - Discharge Diagnosis (1) Pyelonephritis Status: Acute Hospital Course - Lab Results Lab Results: Micro Results 11/17/18 17:20 Blood Blood Culture - Preliminary NO GROWTH AFTER 24 HOURS 11/17/18 16:56 Blood Blood Culture - Preliminary NO GROWTH AFTER 24 HOURS Most Recent Lab Values WBC 14.9 10^3/uL (4.5-11.0) H 11/19/18 06:30 RBC 4.00 10^6/uL (3.5-6.1) 11/19/18 06:30 Hgb 10.9 g/dL (12.0-16.0) L 11/19/18 06:30 Hct 33.3 % (36.0-48.0) L 11/19/18 06:30 MCV 83.3 fl (80.0-105.0) 11/19/18 06:30 MCH 27.3 pg (25.0-35.0) 11/19/18 06:30 MCHC 32.7 g/dl (31.0-37.0) 11/19/18 06:30 RDW 14.2 % (11.5-14.5) 11/19/18 06:30 Plt Count 290 10^3/uL (120.0-450.0) 11/19/18 06:30 MPV 9.4 fl (7.0-11.0) 11/19/18 06:30 Neut % (Auto) 82.2 % (50.0-68.0) H 11/17/18 15:43 Lymph % (Auto) 9.9 % (22.0-35.0) L 11/17/18 15:43 [place] % (Auto) 7.7 % (1.0-6.0) H 11/17/18 15:43 Eos % (Auto) 0.1 % (1.5-5.0) L 11/17/18 15:43 Baso % (Auto) 0.1 % (0.0-3.0) 11/17/18 15:43 Lymph # (Auto) 1.7 (1.2-3.4) 11/17/18 15:43 [place] # (Auto) 1.3 (0.1-0.6) H 11/17/18 15:43 Eos # (Auto) 0.0 (0.0-0.7) 11/17/18 15:43 Baso # (Auto) 0.02 K/mm3 (0.0-2.0) 11/17/18 15:43 Absolute Neuts (auto) 14.03 (1.4-6.5) H 11/17/18 15:43 PT 13.1 SECONDS (9.4-12.5) H 11/17/18 15:43 INR 1.18 11/17/18 15:43 APTT 31.2 Seconds (26.9-38.3) 11/17/18 15:43 Sodium 136 mmol/L (132-148) 11/19/18 06:30 Potassium 4.1 mmol/L (3.6-5.0) 11/19/18 06:30 Chloride 103 mmol/L (98-107) 11/19/18 06:30 Carbon Dioxide 24 mmol/L (21-33) 11/19/18 06:30 Anion Gap 14 (10-20) 11/19/18 06:30 BUN 4 mg/dL (7-21) L 11/19/18 06:30 Creatinine 0.8 mg/dl (0.7-1.2) 11/19/18 06:30 Est GFR ( Amer) > 60 11/19/18 06:30 Est GFR (Non-Af Amer) > 60 11/19/18 06:30 Random Glucose 89 mg/dL (70-110) 11/19/18 06:30 Calcium 8.6 mg/dL (8.4-10.5) 11/19/18 06:30 Phosphorus 2.1 mg/dL (2.5-4.5) L 11/18/18 14:00 Magnesium 1.8 mg/dL (1.7-2.2) 11/18/18 06:10 Total Bilirubin 0.3 mg/dL (0.2-1.3) 11/19/18 06:30 AST 18 U/L (14-36) 11/19/18 06:30 ALT 17 U/L (7-56) 11/19/18 06:30 Alkaline Phosphatase 69 U/L (38-126) 11/19/18 06:30 Troponin I < 0.01 ng/mL 11/17/18 15:43 Total Protein 6.8 g/dL (5.8-8.3) 11/19/18 06:30 Albumin 3.3 g/dL (3.0-4.8) 11/19/18 06:30 Globulin 3.5 gm/dL 11/19/18 06:30 Albumin/Globulin Ratio 1.0 (1.1-1.8) L 11/19/18 06:30 Lipase 40 U/L (23-300) 11/17/18 15:43 Urine Color Yellow (YELLOW) 11/19/18 09:30 Urine Appearance Clear (CLEAR) 11/19/18 09:30 Urine pH 6.0 (4.7-8.0) 11/19/18 09:30 Ur Specific [place] 1.015 (1.005-1.035) 11/19/18 09:30 Urine Protein Negative mg/dL (<30 mg/dL) 11/19/18 09:30 Urine Glucose (UA) 250 mg/dL (NEGATIVE) H 11/19/18 09:30 Urine Ketones Negative mg/dL (NEGATIVE) 11/19/18 09:30 Urine Blood Negative (NEGATIVE) 11/19/18 09:30 Urine Nitrate Negative (NEGATIVE) 11/19/18 09:30 Urine Bilirubin Negative (NEGATIVE) 11/19/18 09:30 Urine Urobilinogen 1.0 E.U./dL (<1 E.U./dL) H 11/19/18 09:30 Ur Leukocyte Esterase Negative Jackie/uL (NEGATIVE) 11/19/18 09:30 Urine RBC TEST NOT PERFORMED 11/17/18 16:50 Urine WBC 10 - 15 /hpf (0-6) H 11/17/18 16:50 Ur Epithelial Cells Many /hpf (0-5) H 11/17/18 16:50 Urine Opiates Screen Negative (NEGATIVE) 11/17/18 20:05 Urine Methadone Screen Negative (NEGATIVE) 11/17/18 20:05 Ur Barbiturates Screen Negative (NEGATIVE) 11/17/18 20:05 Ur Phencyclidine Scrn Negative (NEGATIVE) 11/17/18 20:05 Ur Amphetamines Screen Negative (NEGATIVE) 11/17/18 20:05 U Benzodiazepines Scrn Negative (NEGATIVE) 11/17/18 20:05 U Oth Cocaine Metabols Positive (NEGATIVE) H 11/17/18 20:05 U Cannabinoids Screen Negative (NEGATIVE) 11/17/18 20:05 - Hospital Course Hospital Course: Jose Hanna, PGY-1, Internal Medicine Discharge Summary for Dr. Banks 48 year old female with past medical history of GERD, hiatal hernia (with mesh placement), HTN, arthritis, ovarian cyst (with removal) presents to the left sided abdominal pain. Patient initially denied nausea, vomiting, diarrhea. However, she endorsed increase in urinary frequency and urgency. CT abdomen and pelvis showed inflammatory changes from left kidney (focal pyelonephritis). Dr. Butler was placed on consult. UA was positive for UTI with large LE but negative for nitrate with many epithelial cells. Patient was initially afebrile with tylenol PRN added for fever>100.4. She was also started on IV NS. Finally, she was started on ceftriaxone 1 gm IVPB daily for treatment of pyelonephritis and finished 3 days in the hospital. Patient was febrile on 11/17 at 21:00 to 11/18 at 6:00 with Tmax of 102.8. Patient has been afebrile since that time. WBC trended down throughout the admission. Patient symptomatically improved and to day complained of minor abdominal pain. Patient has not had flank tenderness throughout the admission. Patient was also found to be cocaine positive on UDS. Today, patient signed out AMA. Patient was told about the risks of leaving against medical advice including worsening of infection, sepsis, and , and she acknowledged that she understood what was explained to her. She was told to follow up with PCP, take all home medications in addition to bactrim for 7 days, and return to the emergency department for any new or concerning symptoms. She was told she would be given the urine culture results once the results returned. This is a brief summary of the events that occurred during this hospital visit. For more information, please refer to the hospital documentation. - Date & Time of H&P Date of H&P: 11/17/18 Time of H&P: 19:21 Discharge Exam - Head Exam Head Exam: ATRAUMATIC, NORMAL INSPECTION, NORMOCEPHALIC - Eye Exam Eye Exam: EOMI, PERRL - ENT Exam ENT Exam: Mucous Membranes Moist - Respiratory Exam Respiratory Exam: Clear to PA & Lateral, NORMAL BREATHING PATTERN - Cardiovascular Exam Cardiovascular Exam: REGULAR RHYTHM, RRR, +S1, +S2. absent: Diastolic murmur, Systolic Murmur - GI/Abdominal Exam GI & Abdominal Exam: Normal Bowel Sounds, Soft, Tenderness. absent: Distended - Back Exam Back exam: absent: CVA tenderness (L), CVA tenderness (R) - Neurological Exam Neurological exam: Alert, CN II-XII Intact, Oriented x3 - Skin Skin Exam: Dry, Intact, Normal Color Discharge Plan - Discharge Medications Prescriptions: Sulfamethoxazole/Trimethoprim [Bactrim DS Tab] 1 tab PO BID 7 Days #14 tab - Follow Up Plan Condition: GUARDED Disposition: AGAINST MEDICAL ADVICE Instructions: Sepsis, Adult (DC), Kidney Infection (DC), Urinary Tract Infection in Women (DC), Urinary Tract Infection in Men (DC), Dysuria (GEN) Additional Instructions: Patient was explained the risks of leaving against medical advice including worsening of symptoms, sepsis, hypotension, and . Patient was explained the benefits the staying including continuing treatment of pyelonephritis. Patient was told to follow up with PCP as soon as possible. Patient was told to take bactrim for 7 days for a total of 10 days of antibiotics. Patient was told to return to the emergency department if she had any new or concerning symptoms. Referrals: Leeanna Jones MD [Primary Care Provider] - <Brittani Banks - Last Filed: 11/19/18 14:19> Provider - Provider Date of Admission: 11/17/18 18:24 Attending physician: Brittani Banks MD Primary care physician: Leeanna Jones MD Consults: 11/18/18 06:00 Physician Consult ROUTINE AM Comment: Consulting Provider: David Butler Consulting Physician: David Butler Reason for Consult: pyelonephritis Hospital Course - Lab Results Lab Results: Micro Results 11/17/18 17:20 Blood Blood Culture - Preliminary NO GROWTH AFTER 24 HOURS 11/17/18 16:56 Blood Blood Culture - Preliminary NO GROWTH AFTER 24 HOURS Most Recent Lab Values WBC 14.9 10^3/uL (4.5-11.0) H 11/19/18 06:30 RBC 4.00 10^6/uL (3.5-6.1) 11/19/18 06:30 Hgb 10.9 g/dL (12.0-16.0) L 11/19/18 06:30 Hct 33.3 % (36.0-48.0) L 11/19/18 06:30 MCV 83.3 fl (80.0-105.0) 11/19/18 06:30 MCH 27.3 pg (25.0-35.0) 11/19/18 06:30 MCHC 32.7 g/dl (31.0-37.0) 11/19/18 06:30 RDW 14.2 % (11.5-14.5) 11/19/18 06:30 Plt Count 290 10^3/uL (120.0-450.0) 11/19/18 06:30 MPV 9.4 fl (7.0-11.0) 11/19/18 06:30 Neut % (Auto) 82.2 % (50.0-68.0) H 11/17/18 15:43 Lymph % (Auto) 9.9 % (22.0-35.0) L 11/17/18 15:43 [place] % (Auto) 7.7 % (1.0-6.0) H 11/17/18 15:43 Eos % (Auto) 0.1 % (1.5-5.0) L 11/17/18 15:43 Baso % (Auto) 0.1 % (0.0-3.0) 11/17/18 15:43 Lymph # (Auto) 1.7 (1.2-3.4) 11/17/18 15:43 [place] # (Auto) 1.3 (0.1-0.6) H 11/17/18 15:43 Eos # (Auto) 0.0 (0.0-0.7) 11/17/18 15:43 Baso # (Auto) 0.02 K/mm3 (0.0-2.0) 11/17/18 15:43 Absolute Neuts (auto) 14.03 (1.4-6.5) H 11/17/18 15:43 PT 13.1 SECONDS (9.4-12.5) H 11/17/18 15:43 INR 1.18 11/17/18 15:43 APTT 31.2 Seconds (26.9-38.3) 11/17/18 15:43 Sodium 136 mmol/L (132-148) 11/19/18 06:30 Potassium 4.1 mmol/L (3.6-5.0) 11/19/18 06:30 Chloride 103 mmol/L (98-107) 11/19/18 06:30 Carbon Dioxide 24 mmol/L (21-33) 11/19/18 06:30 Anion Gap 14 (10-20) 11/19/18 06:30 BUN 4 mg/dL (7-21) L 11/19/18 06:30 Creatinine 0.8 mg/dl (0.7-1.2) 11/19/18 06:30 Est GFR ( Amer) > 60 11/19/18 06:30 Est GFR (Non-Af Amer) > 60 11/19/18 06:30 Random Glucose 89 mg/dL (70-110) 11/19/18 06:30 Calcium 8.6 mg/dL (8.4-10.5) 11/19/18 06:30 Phosphorus 2.1 mg/dL (2.5-4.5) L 11/18/18 14:00 Magnesium 1.8 mg/dL (1.7-2.2) 11/18/18 06:10 Total Bilirubin 0.3 mg/dL (0.2-1.3) 11/19/18 06:30 AST 18 U/L (14-36) 11/19/18 06:30 ALT 17 U/L (7-56) 11/19/18 06:30 Alkaline Phosphatase 69 U/L (38-126) 11/19/18 06:30 Troponin I < 0.01 ng/mL 11/17/18 15:43 Total Protein 6.8 g/dL (5.8-8.3) 11/19/18 06:30 Albumin 3.3 g/dL (3.0-4.8) 11/19/18 06:30 Globulin 3.5 gm/dL 11/19/18 06:30 Albumin/Globulin Ratio 1.0 (1.1-1.8) L 11/19/18 06:30 Lipase 40 U/L (23-300) 11/17/18 15:43 Urine Color Yellow (YELLOW) 11/19/18 09:30 Urine Appearance Clear (CLEAR) 11/19/18 09:30 Urine pH 6.0 (4.7-8.0) 11/19/18 09:30 Ur Specific [place] 1.015 (1.005-1.035) 11/19/18 09:30 Urine Protein Negative mg/dL (<30 mg/dL) 11/19/18 09:30 Urine Glucose (UA) 250 mg/dL (NEGATIVE) H 11/19/18 09:30 Urine Ketones Negative mg/dL (NEGATIVE) 11/19/18 09:30 Urine Blood Negative (NEGATIVE) 11/19/18 09:30 Urine Nitrate Negative (NEGATIVE) 11/19/18 09:30 Urine Bilirubin Negative (NEGATIVE) 11/19/18 09:30 Urine Urobilinogen 1.0 E.U./dL (<1 E.U./dL) H 11/19/18 09:30 Ur Leukocyte Esterase Negative Jackie/uL (NEGATIVE) 11/19/18 09:30 Urine RBC TEST NOT PERFORMED 11/17/18 16:50 Urine WBC 10 - 15 /hpf (0-6) H 11/17/18 16:50 Ur Epithelial Cells Many /hpf (0-5) H 11/17/18 16:50 Urine Opiates Screen Negative (NEGATIVE) 11/17/18 20:05 Urine Methadone Screen Negative (NEGATIVE) 11/17/18 20:05 Ur Barbiturates Screen Negative (NEGATIVE) 11/17/18 20:05 Ur Phencyclidine Scrn Negative (NEGATIVE) 11/17/18 20:05 Ur Amphetamines Screen Negative (NEGATIVE) 11/17/18 20:05 U Benzodiazepines Scrn Negative (NEGATIVE) 11/17/18 20:05 U Oth Cocaine Metabols Positive (NEGATIVE) H 11/17/18 20:05 U Cannabinoids Screen Negative (NEGATIVE) 11/17/18 20:05 Attending/Attestation - Attestation I have personally seen and examined this patient.: Yes I have fully participated in the care of the patient.: Yes I have reviewed all pertinent clinical information, including history, physical exam and plan: Yes Notes (Text): 11/19/18 14:15 48 year old female with past medical history of substance abuse who presented with fever and suprapubic pain. She was found to have left pyelonephritis and started on iv antibiotics. Leukocytosis was slowly improving. Last fever was yesterday morning. Patient is still pending urine culture but decided to sign out AMA. She was explained the risks of signing out AMA but signed out against medical advice. She was counselled on risks of continued substance abuse. Brittani Banks MD Hospitalist.
== END 2018-11-19 17:10 | disposition left against medical advice (07) | DRG 320 ==
LOC: ED 14:50 → ERH 18:24 → 5RSO 21:00
PROVIDERS: ADMIT Internal Medicine; ATTEND Internal Medicine
DX: N12 Tubulo-interstitial nephritis, not specified as acute or chronic (principal); E87.6 Hypokalemia; I10 Essential (primary) hypertension; K21.9 Gastro-esophageal reflux disease without esophagitis; Z87.11 Personal history of peptic ulcer disease; Z87.891 Personal history of nicotine dependence; D72.829 Elevated white blood cell count, unspecified; M19.071 Primary osteoarthritis, right ankle and foot; E83.39 Other disorders of phosphorus metabolism; B96.20 Unspecified Escherichia coli [E. coli] as the cause of diseases classified elsewhere